=== PATIENT | male | born 1990 | race Hispanic/Latino ===

== ENCOUNTER 2018-02-13 22:40 | Emergency (ER) | payer BC ==
--- NOTE | 2018-02-13 23:26 | RAD ---
PORTABLE CHEST: History: Chest pain. FINDINGS: Lung johnson are clear. Heart and mediastinum appear normal. IMPRESSION: Negative portable chest. POS: [facility]
== END 2018-02-14 | disposition home or self-care (01) ==
LOC: ERS 22:40
DX: J40 Bronchitis, not specified as acute or chronic (principal)
CPT/HCPCS: 71045; 93005

== ENCOUNTER 2019-11-26 22:24 | Emergency (ER) | payer BC ==
[~2019-11-26 22:24] MED LIST: Iopamidol-370 76% 500 ML 1 ML ONE
[2019-11-26] MEDS ORDERED: Ondansetron PF 4 MG/2 ML Vial ONE (22:41)
[2019-11-26] MEDS ORDERED: Fentanyl 100 MCG/2 ML VIAL ONE (22:41)
[2019-11-26] MEDS ORDERED: Ketorolac Tromethamine 30 MG/ML VIAL ONE (22:41)
[2019-11-26 22:58] LABS: #Eosinphils 0.1 thou/uL (0.0-0.7); #Lymphocytes 1.4 thou/uL (1.20-3.40); #Monocytes 0.4 thou/uL (0.11-0.59); #Neutrophils 6.7 thou/uL (1.40-6.50); %Basophils 0.2 % (0.0-1.0); %Eosinophils 0.6 % (0.0-10.0); %Lymphocytes 16.3 % (21.0-51.0); %Monocytes 5.1 % (0.0-10.0); %Neutrophils 77.8 % (42.0-75.0); Hemoglobin 17.3 g/dL (14.0-18.0); Mean Corpuscular HGB CONC 34.9 g/dL (32.0-36.0); Mean Corpuscular Hemoglobin 28.8 pg (27.0-31.0); Mean Corpuscular Volume 82.5 fL (78.0-98.0); Mean Platelet Volume 8.2 fL (7.4-10.4); Platelet Count 214 thou/uL (130-400); RBC Distribution Width 11.8 % (11.5-14.5); Red Blood Cell (RBC) Count 5.99 mill/uL (4.70-6.10); White Blood Cell (WBC) Count 8.7 thou/uL (4.8-10.8)
--- NOTE | 2019-11-26 23:06 | RAD ---
RADIOGRAPH CHEST 1 VIEW: DATE: 11/26/2019 HISTORY: 28-year-old male with chest pain and tachycardia FINDINGS: The visualized lung johnson are clear. The cardiomediastinal silhouette and hilar shadows are normal. The lateral costophrenic angles are sharp. The osseous structures appear normal. There is no pneumothorax. IMPRESSION: Negative.
[2019-11-26 23:18] LABS: ALT (SGPT) 16 U/L (8-55); AST (SGOT) 12 U/L (5-34); Albumin 4.3 g/dL (3.5-5.0); Alkaline Phosphatase 105 U/L (40-110); Anion Gap 12 mmol/L (10-20); BUN (Urea Nitrogen) 20 mg/dL (8.9-20.6); Bilirubin, Total 0.4 mg/dL (0.2-1.2); CK (CPK) 73 U/L (30-200); Calc. Creatinine Clearance 0 mL/min (70-130); Calcium 8.8 mg/dL (7.8-10.44); Carbon Dioxide 21 mmol/L (22-29); Chloride 110 mmol/L (98-107); Estimated GFR-MDRD Greater than 90; Globulin 2.4 g/dL (2.4-3.5); Glucose 112 mg/dL (70-105); Lipase 36 U/L (8-78); Potassium 4.2 mmol/L (3.5-5.1); Protein, Total 6.7 g/dL (6.0-8.3); Sodium 139 mmol/L (136-145)
--- NOTE | 2019-11-26 23:34 | CT ---
CT ABDOMEN NONCONTRAST CT PELVIS NONCONTRAST: (Urolithiasis protocol) DATE: 11/26/2019 HISTORY: 28-year-old male with abdominal pain TECHNIQUE: IV injection of iodinated contrast media: None Oral contrast media: None FINDINGS: Other than for urolithiasis, the lack of IV and oral contrast limits the evaluation. Liver: No contour abnormalities. Spleen: No splenomegaly. Pancreas: No contour abnormalities. Adrenals: No mass. Kidneys: No nephrolithiasis or overt hydronephrosis. Ureters: No calculi. Bladder: No calculi. Abdominal aorta: No aneurysm. Small bowel: No dilation. Colon: No adjacent fat stranding. Appendix: No dilation or adjacent fat stranding. Free air: None Free fluid: None IMPRESSION: No acute findings.
[2019-11-27 00:10] LABS: Bacteria/HPF None Seen HPF (None Seen); Bilirubin Negative (Negative); Blood, Urine Negative (Negative); Clarity Turbid (Clear); Glucose, Urine (Dipstick) 30 mg/dL (Negative); Ketone, Urine Negative (Negative); Leukocyte Negative Leu/uL (Negative); Nitrite Negative (Negative); Protein, Urine (Dipstick) 10 mg/dL (Neg-Trace); RBC/HPF 0-3 HPF (0-3); Specific Gravity, Urine 1.023 (1.002-1.036); Squamous Epithelial None Seen HPF (0-3); WBC/HPF 0-3 HPF (0-3); pH, Urine 7.5 (5.0-9.0)
--- NOTE | 2019-11-27 08:40 | CT ---
PRELIMINARY REPORT/[facility]/EMERGENCY AFTER HOURS PROCEDURE: EXAM: CTA Chest with Intravenous Contrast CLINICAL HISTORY: CP TECHNIQUE: Axial CTA images of the chest with intravenous contrast. Three-dimensional MIP/volume rend ered reformations were performed. CONTRAST: With; ISOVUE 370,100mL COMPARISON: None provided. FINDINGS: PULMONARY ARTERIES There is no intraluminal filling defect suspicious for PE. AORTA No thoracic aortic aneurysm or dissection. LUNGS The lungs are clear. No pulmonary mass. No focal airspace consolidation. PLEURAL SPACES No pleural effusion. No pneumothorax. HEART AND MEDIASTINUM Cardiomegaly. BONES No focal osseous abnormality or acute fracture. UPPER ABDOMEN Images through the upper abdomen are unremarkable. MISCELLANEOUS: Asymmetric left gynecomastia. IMPRESSION: 1. No intraluminal filling defect suspicious for PE. 2. Cardiomegaly. 3. Asymmetric left gynecomastia. ELECTRONICALLY SIGNED BY: Steven Pizarro MD Nov 27, 2019 1:03:53 AM CDT FINAL REPORT EMERGENT AFTER HOURS CTA OF THE CHEST WITH CONTRAST: FINDINGS/IMPRESSION: I agree with the findings and impression given in the preliminary report per [facility] physici an. No evidence of pulmonary thromboembolism. POS: [facility]
--- NOTE | 2019-12-06 16:54 | EKG ---
Test Reason : AB PAIN Blood Pressure : / mmHG Vent. Rate : 084 BPM Atrial Rate : 084 BPM P-R Int : 134 ms QRS Dur : 086 ms QT Int : 330 ms P-R-T Axes : 057 046 033 degrees QTc Int : 389 ms Normal sinus rhythm with sinus arrhythmia Normal ECG Confirmed by WILD FISH, VIOLETTA ([id number]), editor house organ JOHNSON NUNEZ ([id number]) on 12/06/2019 4:53:42 PM Referred By: WILD Confirmed By:VIOLETTA ROME MD
== END 2019-11-27 02:25 | disposition home or self-care (01) ==
LOC: ERS 22:24
DX: N62 Hypertrophy of breast (principal); R07.9 Chest pain, unspecified; R10.9 Unspecified abdominal pain
CPT/HCPCS: 36415; 71045; 71275; 74176; 80053; 81003; 82550; 83690; 84484; 85025; 85379; 93005; 96361; 96374; 96375; J1885; J2405; J3010; Q9967

== ENCOUNTER 2022-01-06 04:44 | Emergency (ER) | payer BC, OTHER, SELFPAY ==
[2022-01-06] MEDS ORDERED: Ketorolac Tromethamine 30 MG/ML VIAL ONE (05:38)
== END 2022-01-06 06:00 | disposition home or self-care (01) ==
LOC: ERS 04:44
DX: S60.021A Contusion of right index finger without damage to nail, initial encounter (principal); W23.0XXA Caught, crushed, jammed, or pinched between moving objects, initial encounter
CPT/HCPCS: 96372; J1885